=== PATIENT | female | born 1970 | race Caucasian/White ===

== ENCOUNTER 2016-11-20 08:03 | Emergency (ER) | payer BC ==
[~2016-11-20] VITALS: Ht 154.9 cm; Wt 101.0 kg
[2016-11-20] MEDS ORDERED: SERTRALINE HCL100 MG PO (08:14)
[2016-11-20] MEDS ORDERED: BUPROPION XL150 MG PO (08:14)
[2016-11-20] MEDS ORDERED: ATARAX10 MG PO (08:14)
[2016-11-20] MEDS ORDERED: LAMOTRIGINE200 MG PO (08:14)
[2016-11-20] MEDS ORDERED: TRAMADOL HCL50 MG PO (10:01)
[2016-11-20 10:11] VITALS: BP 125/77
== END 2016-11-20 10:11 | disposition home or self-care (01) ==
LOC: EME 08:03
DX: S62.635A Displaced fracture of distal phalanx of left ring finger, initial encounter for closed fracture (principal); W01.0XXA Fall on same level from slipping, tripping and stumbling without subsequent striking against object, initial encounter; Y92.810 Car as the place of occurrence of the external cause; Y92.524 Gas station as the place of occurrence of the external cause; Z87.891 Personal history of nicotine dependence
CPT/HCPCS: 73140; 99281; 99284